=== PATIENT | male | born 1945 | race Caucasian/White ===

== ENCOUNTER 2020-12-19 05:21 | Inpatient (IN) ==
[2020-12-19] MEDS ORDERED: VANCOMYCIN INJ 1,000 MG in SODIUM CHLORIDE 0.9% 250 ML IV ONE (06:30)
[2020-12-19 06:48] LABS: PT Patient Result 11.7 SECS (10.5-12.0); Partial Thromboplastin Time 28.4 SECS (23.9-33.8)
[2020-12-19] MEDS ORDERED: ACETAMINOPHEN 500 MG TABLET PO ONE (06:58)
[2020-12-19] MEDS ORDERED: FAMOTIDINE 20 MG TABLET PO ONE (06:58)
[2020-12-19] MEDS ORDERED: GABAPENTIN 400 MG CAPSULE PO ONE (06:58)
[2020-12-19] MEDS ORDERED: DIAZEPAM 5 MG TABLET PO ONE (06:58)
[2020-12-19] MEDS ORDERED: LACTATED RINGERS 1,000 ML IV SCH (07:00)
[2020-12-19] MEDS ORDERED: LIDOCAINE 2% 5 ML VIAL ONE (07:18)
[2020-12-19] MEDS ORDERED: DEXMEDETOMIDINE 200 MCG/2 ML VIAL ONE (07:18)
[2020-12-19] MEDS ORDERED: ROPIVACAINE 0.5% 30 ML VIAL ONE (07:19)
[2020-12-19] MEDS ORDERED: BUPIVACAINE SPINAL 0.75% 2 ML AMP SPINAL ONE (07:19)
[2020-12-19] MEDS ORDERED: DEXAMETHASONE 4 MG/1 ML VIAL ONE ×2 (07:19→09:17)
[2020-12-19] MEDS ORDERED: fentaNYL 100 MCG/2 ML VIAL ONE (07:30)
[2020-12-19] MEDS ORDERED: ONDANSETRON 4 MG/2 ML VIAL IV PRN (08:54)
[2020-12-19] MEDS ORDERED: MAGNESIUM HYDROXIDE SUSP 30 ML UDCUP PO PRN (08:54)
[2020-12-19] MEDS ORDERED: LACTULOSE 20 GM/30 ML UDCUP PO PRN (08:54)
[2020-12-19] MEDS ORDERED: BISACODYL 10 MG SUPP RECTAL PRN (08:54)
[2020-12-19] MEDS ORDERED: diphenhydrAMINE CAP 25 MG CAPSULE PO PRN (08:54)
[2020-12-19] MEDS ORDERED: PROMETHAZINE 25 MG/1 ML VIAL IM PRN (08:54)
[2020-12-19] MEDS ORDERED: CHOLECALCIFEROL 1,000 UNIT TABLET PO SCH (09:00)
[2020-12-19] MEDS ORDERED: MORPHINE 4 MG/1 ML VIAL IV PRN (09:04)
[2020-12-19] MEDS ORDERED: propofoL 200 MG/20 ML VIAL IV ONE (09:17)
[2020-12-19] MEDS ORDERED: ONDANSETRON 4 MG/2 ML VIAL ONE (09:17)
[2020-12-19] MEDS ORDERED: TRANEXAMIC ACID 1,000 MG/10 ML VIAL ONE (09:17)
[2020-12-19] MEDS ORDERED: LACTATED RINGERS 1,000 ML IV ONE (09:17)
[2020-12-19] MEDS ORDERED: SODIUM CHLORIDE 0.9% 100 ML IV ONE (09:17)
[2020-12-19] MEDS ORDERED: SEVOFLURANE 1 UNIT/15 MINUTE INH ONE (09:17)
[2020-12-19] MEDS ORDERED: ePHEDrine 50 MG/ML VIAL ONE (09:34)
[2020-12-19] MEDS: ceFAZolin 2,000 MG/50 ML DUPLEX IV SCH ×2 (15:40→22:47)
[2020-12-19] MEDS: WARFARIN 7.5 MG TABLET PO SCH (18:23)
[2020-12-19] MEDS: ENOXAPARIN 40 MG/0.4 ML SYRINGE SUBCUT SCH (18:26)
[2020-12-19] MEDS: DOCUSATE SODIUM 100 MG CAPSULE PO SCH (20:43)
[2020-12-19] MEDS: TEMAZEPAM 7.5 MG CAPSULE PO PRN (20:44)
[2020-12-20 05:15] LABS: Basophils % 0.2 % (0.0-0.8); Hematocrit 39.5 VOL% (42.0-52.0); Hemoglobin 13.9 GM/DL (14.0-18.0); Immature Granulocytes % 0.6 %; Lymphocytes # 1.4 10*3/uL (1.4-4.0); Lymphocytes % 9.1 % (21.2-54.2); Mean Corpuscular HGB Conc 35.2 GM/DL (32-36); Mean Corpuscular Volume 88.6 FL (87-102); Mean Platelet Volume 9.5 FL (9.6-12.0); Monocytes % 8.4 % (1.7-12.7); Neutrophils % 81.7 % (38.7-73.9); Platelet Count 206 T/CUMM (130-400); Red Blood Count 4.46 MC/CUMM (3.8-5.5); Red Cell Distribution Width 13.6 % (9.3-17.3); White Blood Count 15.5 T/CUMM (4-12)
[2020-12-20 05:25] LABS: INR 1.1; PT Patient Result 11.9 SECS (10.5-12.0)
[2020-12-20 05:30] LABS: Calcium 8.5 MG/DL (8.5-10.1); Osmolality,Calculated 280.5 MOS/KG (273-304); Potassium 4.2 MMOL/L (3.5-5.1)
[2020-12-20] MEDS: LEVOTHYROXINE 175 MCG TABLET PO SCH (05:40)
[2020-12-20 05:43] LABS: Calcium 8.5 MG/DL (8.5-10.1); Osmolality,Calculated 280.5 MOS/KG (273-304); Potassium 4.3 MMOL/L (3.5-5.1)
[2020-12-20] MEDS: ASCORBIC ACID 500 MG TABLET PO SCH (08:53)
[2020-12-20] MEDS: DOCUSATE SODIUM 100 MG CAPSULE PO SCH ×2 (08:53→20:46)
[2020-12-20] MEDS: DIGOXIN 0.125 MG TABLET PO SCH (08:53)
[2020-12-20] MEDS: CHOLECALCIFEROL 1,000 UNIT TABLET PO SCH (08:53)
[2020-12-20] MEDS: DILTIAZEM CD 240 MG CAPSULE PO SCH (08:53)
[2020-12-20] MEDS ORDERED: DIGOXIN 0.125 MG TABLET PO SCH (09:00)
[2020-12-20] MEDS ORDERED: traMADol 50 MG TABLET PO PRN (13:13)
[2020-12-20] MEDS ORDERED: ACETAMINOPHEN 325 MG TABLET PO PRN (13:14)
[2020-12-20] MEDS: CLORAZEPATE 3.75 MG TABLET PO SCH ×2 (13:22→20:46)
[2020-12-20] MEDS ORDERED: ACETAMINOPHEN/CODEINE 300-30 MG TABLET PO PRN ×2 (16:24)
[2020-12-20] MEDS: ENOXAPARIN 40 MG/0.4 ML SYRINGE SUBCUT SCH (16:25)
[2020-12-20] MEDS: WARFARIN 5 MG TABLET PO SCH (18:10)
[2020-12-21] MEDS: LEVOTHYROXINE 175 MCG TABLET PO SCH (05:33)
[2020-12-21 06:03] LABS: Basophils % 0.3 % (0.0-0.8); Eosinophils % 0.1 % (0.00-10.9); Hematocrit 36.4 VOL% (42.0-52.0); Hemoglobin 12.9 GM/DL (14.0-18.0); Immature Granulocytes % 0.9 %; Immature Granulocytes Absolute 0.13 #; Lymphocytes # 1.8 10*3/uL (1.4-4.0); Lymphocytes % 12.5 % (21.2-54.2); Mean Corpuscular HGB Conc 35.4 GM/DL (32-36); Mean Corpuscular Volume 89.9 FL (87-102); Mean Platelet Volume 9.5 FL (9.6-12.0); Neutrophils % 69.2 % (38.7-73.9); Platelet Count 168 T/CUMM (130-400); Red Blood Count 4.05 MC/CUMM (3.8-5.5); Red Cell Distribution Width 13.8 % (9.3-17.3); White Blood Count 14.5 T/CUMM (4-12)
[2020-12-21 06:22] LABS: INR 1.2; PT Patient Result 13.2 SECS (10.5-12.0)
[2020-12-21 06:24] LABS: Calcium 8.5 MG/DL (8.5-10.1); Osmolality,Calculated 276.8 MOS/KG (273-304); Potassium 4.2 MMOL/L (3.5-5.1)
[2020-12-21 06:26] LABS: Lymphocytes 10 % (20-55); Platelet Estimate Normal; Segmented Neutrophils 79 % (50-85); Total Cells Counted 100
[2020-12-21] MEDS: DOCUSATE SODIUM 100 MG CAPSULE PO SCH ×2 (08:20→20:52)
[2020-12-21] MEDS: DILTIAZEM CD 240 MG CAPSULE PO SCH (08:20)
[2020-12-21] MEDS: DIGOXIN 0.125 MG TABLET PO SCH (08:21)
[2020-12-21] MEDS: CHOLECALCIFEROL 1,000 UNIT TABLET PO SCH (08:21)
[2020-12-21] MEDS: ASCORBIC ACID 500 MG TABLET PO SCH (08:21)
[2020-12-21] MEDS: CLORAZEPATE 3.75 MG TABLET PO SCH ×3 (08:21→20:52)
[2020-12-21] MEDS: ENOXAPARIN 40 MG/0.4 ML SYRINGE SUBCUT SCH (15:54)
[2020-12-21] MEDS: WARFARIN 7.5 MG TABLET PO SCH (18:05)
[2020-12-22] MEDS: LEVOTHYROXINE 175 MCG TABLET PO SCH (05:45)
[2020-12-22 06:28] LABS: Basophils # 0.1 10*3/uL (0.0-0.2); Basophils % 0.4 % (0.0-0.8); Eosinophils # 0.1 10*3/uL (0.0-0.87); Eosinophils % 0.7 % (0.00-10.9); Hematocrit 38.8 VOL% (42.0-52.0); Hemoglobin 12.9 GM/DL (14.0-18.0); Immature Granulocytes % 0.9 %; Immature Granulocytes Absolute 0.14 #; Lymphocytes # 4.1 10*3/uL (1.4-4.0); Lymphocytes % 25.8 % (21.2-54.2); Mean Corpuscular HGB Conc 33.2 GM/DL (32-36); Mean Corpuscular Volume 91.5 FL (87-102); Mean Platelet Volume 9.7 FL (9.6-12.0); Monocytes % 11.5 % (1.7-12.7); Neutrophils % 60.7 % (38.7-73.9); Platelet Count 177 T/CUMM (130-400); Red Blood Count 4.24 MC/CUMM (3.8-5.5); White Blood Count 15.9 T/CUMM (4-12)
[2020-12-22 06:35] LABS: INR 1.1; PT Patient Result 12.4 SECS (10.5-12.0)
[2020-12-22 06:44] LABS: Calcium 8.5 MG/DL (8.5-10.1); Osmolality,Calculated 280.5 MOS/KG (273-304); Potassium 3.9 MMOL/L (3.5-5.1)
[2020-12-22] MEDS: CLORAZEPATE 3.75 MG TABLET PO SCH ×3 (09:40→20:38)
[2020-12-22] MEDS: CHOLECALCIFEROL 1,000 UNIT TABLET PO SCH (09:48)
[2020-12-22] MEDS: ASCORBIC ACID 500 MG TABLET PO SCH (09:49)
[2020-12-22] MEDS: DOCUSATE SODIUM 100 MG CAPSULE PO SCH ×2 (09:49→20:38)
[2020-12-22] MEDS: DILTIAZEM CD 240 MG CAPSULE PO SCH (09:50)
[2020-12-22] MEDS: DIGOXIN 0.125 MG TABLET PO SCH (09:50)
[2020-12-22] MEDS ORDERED: TUBERCULIN SKIN TEST 0.1 ML SYRINGE INTRADERM ONE (12:49)
[2020-12-22] MEDS: ENOXAPARIN 40 MG/0.4 ML SYRINGE SUBCUT SCH (16:04)
[2020-12-22] MEDS: WARFARIN 5 MG TABLET PO SCH (18:56)
[2020-12-23] MEDS: MORPHINE 4 MG/1 ML VIAL IV PRN (01:17)
[2020-12-23] MEDS: LEVOTHYROXINE 175 MCG TABLET PO SCH (05:37)
[2020-12-23 06:02] LABS: Basophils # 0.1 10*3/uL (0.0-0.2); Basophils % 0.5 % (0.0-0.8); Eosinophils # 0.2 10*3/uL (0.0-0.87); Eosinophils % 1.6 % (0.00-10.9); Hematocrit 36.4 VOL% (42.0-52.0); Immature Granulocytes % 1.1 %; Immature Granulocytes Absolute 0.14 #; Lymphocytes # 2.6 10*3/uL (1.4-4.0); Lymphocytes % 19.7 % (21.2-54.2); Mean Corpuscular Volume 93.1 FL (87-102); Mean Platelet Volume 10.4 FL (9.6-12.0); Monocytes % 12.4 % (1.7-12.7); Neutrophils % 64.7 % (38.7-73.9); Platelet Count 188 T/CUMM (130-400); Red Blood Count 3.91 MC/CUMM (3.8-5.5); Red Cell Distribution Width 13.8 % (9.3-17.3); White Blood Count 13.3 T/CUMM (4-12)
[2020-12-23 06:07] LABS: INR 1.6; PT Patient Result 17.3 SECS (10.5-12.0)
[2020-12-23 06:16] LABS: Calcium 8.1 MG/DL (8.5-10.1); Osmolality,Calculated 279.7 MOS/KG (273-304); Potassium 3.7 MMOL/L (3.5-5.1)
[2020-12-23] MEDS: DOCUSATE SODIUM 100 MG CAPSULE PO SCH ×2 (08:43→20:26)
[2020-12-23] MEDS: DIGOXIN 0.125 MG TABLET PO SCH (08:43)
[2020-12-23] MEDS: DILTIAZEM CD 240 MG CAPSULE PO SCH (08:44)
[2020-12-23] MEDS: ASCORBIC ACID 500 MG TABLET PO SCH (08:44)
[2020-12-23] MEDS: CHOLECALCIFEROL 1,000 UNIT TABLET PO SCH (08:44)
[2020-12-23] MEDS: CLORAZEPATE 3.75 MG TABLET PO SCH ×3 (08:47→20:30)
[2020-12-23] MEDS: ENOXAPARIN 40 MG/0.4 ML SYRINGE SUBCUT SCH (16:32)
[2020-12-23] MEDS: WARFARIN 7.5 MG TABLET PO SCH (18:06)
[2020-12-24] MEDS: LEVOTHYROXINE 175 MCG TABLET PO SCH (05:33)
[2020-12-24 05:37] LABS: INR 1.1; PT Patient Result 12.4 SECS (10.5-12.0)
[2020-12-24] MEDS: DILTIAZEM CD 240 MG CAPSULE PO SCH (09:42)
[2020-12-24] MEDS: CHOLECALCIFEROL 1,000 UNIT TABLET PO SCH (09:42)
[2020-12-24] MEDS: ASCORBIC ACID 500 MG TABLET PO SCH (09:43)
[2020-12-24] MEDS: DOCUSATE SODIUM 100 MG CAPSULE PO SCH ×2 (09:43→20:08)
[2020-12-24] MEDS: DIGOXIN 0.125 MG TABLET PO SCH (09:44)
[2020-12-24] MEDS: CLORAZEPATE 3.75 MG TABLET PO SCH ×3 (09:46→20:27)
[2020-12-24] MEDS: ENOXAPARIN 40 MG/0.4 ML SYRINGE SUBCUT SCH (16:16)
[2020-12-24] MEDS: WARFARIN 5 MG TABLET PO SCH (18:01)
[2020-12-25] MEDS: TEMAZEPAM 7.5 MG CAPSULE PO PRN (00:14)
[2020-12-25] MEDS: MORPHINE 4 MG/1 ML VIAL IV PRN (04:03)
[2020-12-25 05:08] LABS: INR 1.2; PT Patient Result 13.5 SECS (10.5-12.0)
[2020-12-25] MEDS: LEVOTHYROXINE 175 MCG TABLET PO SCH (06:35)
[2020-12-25] MEDS: DIGOXIN 0.125 MG TABLET PO SCH (10:32)
[2020-12-25] MEDS: ASCORBIC ACID 500 MG TABLET PO SCH (10:32)
[2020-12-25] MEDS: DOCUSATE SODIUM 100 MG CAPSULE PO SCH (10:32)
[2020-12-25] MEDS: CHOLECALCIFEROL 1,000 UNIT TABLET PO SCH (10:32)
[2020-12-25] MEDS: DILTIAZEM CD 240 MG CAPSULE PO SCH (10:32)
[2020-12-25] MEDS: CLORAZEPATE 3.75 MG TABLET PO SCH (10:32)
[2020-12-25 11:17] VITALS: BP 106/86
== END 2020-12-25 13:00 | disposition home health service (06) | DRG 470 ==
LOC: N.OR 05:21 → N.SDSINP 05:24 → N.3E 11:39
PROVIDERS: ADMIT Orthopaedic Surgery; ATTEND Orthopaedic Surgery